=== PATIENT | female | born 1990 | race Two or more races ===

== ENCOUNTER 2017-02-28 17:36 | Emergency (ER) | payer OTHER | END 2017-02-28 19:00 | disposition home or self-care (01) | LOC: CED 17:36 | DX: Z53.21 Procedure and treatment not carried out due to patient leaving prior to being seen by health care provider (principal) ==

== ENCOUNTER 2017-03-26 14:33 | Emergency (ER) | payer OTHER ==
--- NOTE | ~2017-03-26 | CR20 ---
[facility] A Service of [facility] & [facility] [place] RADIOLOGY TEXT RESULTS PATIENT: WILIAN PAINTER LOCATION: [facility] : [birth year] UNIT #: [id number] AGE: [address]: Argentina Willams SEX: F ORDER DR: [id number] [facility] [address] [place], [place] [address] [id number] E MR#: [id number] Acc #: [id number] NAME: WILIAN PAINTER : 1990 SEX: F STUDY DATE/TIME: 03/26/2017 16:18 UNIT: [facility] ROOM: STUDY DESCRIPTION: CR Ankle Min 3 Views Lt Attending Physician: Argentina Willams P.A.-C. Ordering Physician: Argentina Willams P.A.-C. Primary Care Physician: Anthony Maciel M.D. MEDICAL IMAGING REPORT This report is preliminary unless electronic signature is present EXAM Left ankle, 3 views HISTORY Ankle pain and swelling after injury 3 days ago. FINDINGS AP, lateral, and oblique projections of the ankle show satisfactory integrity of the joint mortise with a smooth articular surface. There is no identifiable fracture, dislocation, or radiopaque foreign body. IMPRESSION Normal ankle. Dictated by... James Altamirano M.D. THIS IS AN ELECTRONICALLY VERIFIED REPORT James Altamirano M.D. at 03/27/2017 3:05 PM DFL/psc TD: 03/27/2017 00:47 JOB #: [id number] MEDICAL IMAGING REPORT Page 1 of 1 COPY
== END 2017-03-26 17:15 | disposition home or self-care (01) ==
LOC: CED 14:33
DX: S93.492A Sprain of other ligament of left ankle, initial encounter (principal); X50.1XXA Overexertion from prolonged static or awkward postures, initial encounter; Y92.009 Unspecified place in unspecified non-institutional (private) residence as the place of occurrence of the external cause; F32.9 Major depressive disorder, single episode, unspecified; F43.10 Post-traumatic stress disorder, unspecified; Z86.73 Personal history of transient ischemic attack (TIA), and cerebral infarction without residual deficits
CPT/HCPCS: 29515; 73610; 99283